=== PATIENT | female | born 2000 | race Hispanic/Latino ===

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

== ENCOUNTER 2024-05-21 10:32 | Emergency (ER) | payer OTHER, SELFPAY ==
[2024-05-21] MEDS ORDERED: Boostrix 0.5 ML (Tdap) VIAL (>/=7 yrs of age) ONE (11:11)
[2024-05-21] MEDS ORDERED: Bacitracin 1 PK ONE (11:11)
== END 2024-05-21 11:19 | disposition home or self-care (01) ==
LOC: ERS 10:32
DX: S90.811A Abrasion, right foot, initial encounter (principal); Y04.8XXA Assault by other bodily force, initial encounter
CPT/HCPCS: 90471; 90715